=== PATIENT | male | born 1945 | race Caucasian/White ===

== ENCOUNTER → 2018-01-31 | Outpatient (CLI) | payer MEDICARE ==
[~2018-01-31] MED LIST: ASPI-1197 PO; OLME1TAB7 PO; REGADENOSON 0.4 MG/5 ML PF SYG IVP SCH; SIMV40TA59 PO
== END | disposition home or self-care (01) ==
LOC: RAH 12:29
PROVIDERS: ATTEND Internal Medicine
DX: J44.9 Chronic obstructive pulmonary disease, unspecified (principal); J18.9 Pneumonia, unspecified organism; J98.11 Atelectasis; I51.7 Cardiomegaly
CPT/HCPCS: 71046

== ENCOUNTER → 2018-02-06 | Outpatient (CLI) | payer MEDICARE ==
[~2018-02-06] MED LIST changes: +REGADENOSON 0.4 MG/5 ML PF SYG IVP ONE; -REGADENOSON 0.4 MG/5 ML PF SYG IVP SCH
== END | disposition home or self-care (01) ==
LOC: SHCH 09:17
PROVIDERS: ATTEND Internal Medicine Cardiovascular Disease
DX: I48.0 Paroxysmal atrial fibrillation (principal); E78.00 Pure hypercholesterolemia, unspecified; I10 Essential (primary) hypertension
CPT/HCPCS: 78452; 93017; 96374; A9500 ×2; J2785

== ENCOUNTER 2018-03-29 05:52 | Observation (INO) | payer MEDICARE ==
[2018-03-27 14:07] VITALS: BP 138/62
[2018-03-27 14:07] LABS: BASOPHILS % (AUTO) 0.4 % (0.0-5.0); EOSINOPHILS % (AUTO) 1.7 % (0.0-8.0); HEMATOCRIT 38.5 % (42-54); LYMPHOCYTES % (AUTO) 25.7 % (21.0-51.0); MEAN CORPUSCULAR HEMOGLOBIN 30.3 pg (27.0-33.0); MEAN CORPUSCULAR HGB CONC 33.1 g/dL (32.0-36.0); MEAN CORPUSCULAR VOLUME 91.5 fL (79-99); MONOCYTES % (AUTO) 9.5 % (3.0-13.0); NEUTROPHILS % (AUTO) 62.7 % (40.0-77.0); PLATELET COUNT (AUTO) 256 K/uL (130-400); RED BLOOD CELL COUNT(AUTO) 4.21 MIL/uL (4.50-6.20); RED CELL DISTRIBUTION WIDTH 14.6 % (11.0-15.5); WHITE BLOOD COUNT (AUTO) 5.8 K/uL (4.8-10.8)
[2018-03-27 14:11] LABS: APPEARANCE,URINE Cloudy (CLEAR); BILIRUBIN,URINE Negative (NEGATIVE); COLOR,URINE Yellow (YELLOW); GLUCOSE, URINE (UA) Negative (NEGATIVE); KETONES,URINE Negative (NEGATIVE); LEUKOCYTE ESTERASE ,URINE Negative (NEGATIVE); NITRATE,URINE Negative (NEGATIVE); OCCULT BLOOD,URINE Negative (NEGATIVE); PH,URINE 7.5 (5.0-8.0); PROTEIN,URINE Negative (NEGATIVE); UROBILINOGEN,URINE 0.2 mg/dL (0.2-1.0)
[2018-03-27 14:18] LABS: AMORPHOUS SEDIMENT,UR Many /LPF (None Seen); BACTERIA,URINE Few /HPF (None Seen); RBC,URINE None Seen /HPF (0-1); SQUAMOUS EPITHELIAL CELL,UR None Seen /HPF (0-2); WBC,URINE None Seen /HPF (0-1)
[2018-03-27 14:21] LABS: CREATININE 0.7 mg/dL (0.5-1.5); POTASSIUM 3.9 mmol/L (3.5-5.1)
[2018-03-27 14:25] LABS: INR 1.02 (0.85-1.15); PARTIAL THROMBOPLASTIN TIME 30.3 SEC (26.3-35.5); PROTHROMBIN TIME 10.7 SEC (9.6-11.6)
[2018-03-29] VITALS (12 sets, daily range): BP systolic 119–159; BP diastolic 68–98
[~2018-03-29] VITALS: Ht 182.9 cm; Wt 103.4 kg
[~2018-03-29 05:52] MED LIST changes: -REGADENOSON 0.4 MG/5 ML PF SYG IVP ONE; +SODIUM CHLORIDE 0.9% 500ML 500 ML IV SCH
[2018-03-29] MEDS ORDERED: SODIUM CHLORIDE 0.9% 1000ML 1,000 ML IV ONE (07:05)
[2018-03-29] MEDS ORDERED: IOHEXOL 350 MG/ML 100ML INFUS..BTL IV ONE (07:11)
[2018-03-29] MEDS ORDERED: IOHEXOL-350 50ML VIAL IV ONE (07:11)
[2018-03-29] MEDS ORDERED: LIDOCAINE HCL 2% 20ML ONE (07:11)
[2018-03-29] MEDS ORDERED: DILT120C47 PO (07:23)
[2018-03-29] MEDS ORDERED: ZOLP5TAB8 PO (07:23)
[2018-03-29] MEDS ORDERED: ENALAPRILAT DIHYDRATE 1.25 MG/ML 2ML VIAL IVP ONE (08:10)
[2018-03-29] MEDS ORDERED: RIVA10TA PO (08:25)
[2018-03-29] MEDS ORDERED: HYDROCHLOROTHIAZIDE 25 MG TABLET PO SCH ×2 (09:00→21:00)
[2018-03-29] MEDS: DILTIAZEM HCL 120 MG CAP.SR.24H PO SCH (09:00)
[2018-03-29] MEDS ORDERED: LOSARTAN 100 MG TABLET PO SCH ×2 (09:00→21:00)
[2018-03-29] MEDS ORDERED: APIX5TAB PO (09:37)
[2018-03-29] MEDS ORDERED: ZOLPIDEM TARTRATE 5 MG TAB PO SCH (21:00)
[2018-03-29] MEDS ORDERED: ASPIRIN 81MG TAB.CHEW PO SCH (21:00)
[2018-03-29] MEDS ORDERED: SIMVASTATIN 20 MG TABLET PO SCH (21:00)
[2018-03-30] VITALS: BP 139/70
[2018-03-30 04:00] VITALS: BP 113/78
[2018-03-30 07:45] VITALS: BP 124/75
[2018-03-30] MEDS: DILTIAZEM HCL 120 MG CAP.SR.24H PO SCH (10:02)
[2018-03-30] MEDS ORDERED: APIXABAN 5 MG TABLET PO SCH (21:00)
== END 2018-03-30 10:55 | disposition home or self-care (01) ==
LOC: DAH 05:52 → 2DH 05:53 → DAH 05:53
PROVIDERS: ADMIT Internal Medicine Critical Care Medicine; ATTEND Internal Medicine Critical Care Medicine
DX: I25.119 Atherosclerotic heart disease of native coronary artery with unspecified angina pectoris (principal); I10 Essential (primary) hypertension; I48.2 Chronic atrial fibrillation; E66.9 Obesity, unspecified; E78.5 Hyperlipidemia, unspecified; J18.0 Bronchopneumonia, unspecified organism; Z79.01 Long term (current) use of anticoagulants; Z79.899 Other long term (current) drug therapy; Z96.612 Presence of left artificial shoulder joint; Z82.49 Family history of ischemic heart disease and other diseases of the circulatory system
CPT/HCPCS: 36415; 71045; 80048; 81001; 85025; 85610; 85730; 93005; 93458; A4606; C1769; C1894; G0378 ×29; J1644 ×2; J3490 ×2; J7030; Q9965; Q9967 ×2